=== PATIENT | female | born 1990 | race Caucasian/White ===

== ENCOUNTER 2017-01-11 21:32 | Emergency (ER) | payer OTHER ==
[2017-01-11 21:29] LABS: URINE SOURCE CLEAN CATCH
[2017-01-11 21:31] LABS: URINE APPEARANCE CLEAR; URINE BILIRUBIN NEG (NEG); URINE BLOOD NEG (NEG); URINE COLOR YELLOW; URINE GLUCOSE NEG (NORM); URINE KETONE NEG (NEG); URINE LEUKOCYTE ESTERASE NEG (NEG); URINE NITRATE NEG (NEG); URINE PROTEIN NEG (NEG); URINE SPECIFIC GRAVITY 1.025 (1.003-1.035)
[2017-01-11 21:32] LABS: MICRO INDICATED? NO
[~2017-01-11 21:32] MED LIST: ALBUTEROL17 GM INH; BENZONATATE PO; BIRTH CONTROL PILL PO; COLD MULTI SYM; DELTASONE20 MG PO; DICYCLOMINE HCL20 MG PO; HYDROMET SYRUP480 ML PO; MINIPRESS1 MG PO; NAPROXEN375 MG PO; RECLIPSEN PO; SINGULAIR PO; VIBERZI100 MG PO; VOLTAREN75 MG PO; WELLBUTRIN SR150 MG PO; ZANTAC150 M1 PO; ZITHROMAX PO; ZOFRAN ODT4 MG PO; ZOLOFT50 MG PO; ZYRTEC10 M2 PO; [UNRECOGNIZED DRUG - OTHER]
[2017-01-11 21:46] LABS: BASOPHIL# 0.1 X10e3 (0-0.3); BASOPHIL% 0.8 % (0-2.5); DIFF IND NO; EOSINOPHIL# 0.7 X10e3 (0-0.7); EOSINOPHIL% 7.2 % (0.0-7.0); HEMATOCRIT 43.4 % (35.0-45.0); HEMOGLOBIN 15.3 gm/dL (12.0-16.0); LYMPHOCYTE# 2.4 X10e3 (1.0-3.5); LYMPHOCYTE% 24.1 % (17.0-45.0); MEAN CELL VOLUME 91.4 FL (83-96); MEAN CORPUSCULAR HEMOGLOBIN 32.2 PG (28-34); MEAN CORPUSCULAR HGB CONC 35.3 g/dL (30-36); MEAN PLATELET VOLUME 8.8 FL (6.5-11.5); MONOCYTE# 0.5 X10e3 (0-1.0); MONOCYTE% 4.8 % (3.0-12.0); NEUTROPHIL# 6.2 X10e3 (1.5-7.1); NEUTROPHIL% 63.1 % (40-75); PLATELET COUNT 175 X10e3 (140-420); RED BLOOD COUNT 4.75 X10e (3.90-5.30); WHITE BLOOD COUNT 9.8 X10e3 (4.0-10.5)
[2017-01-11 22:00] LABS: ALBUMIN SERUM 4.2 g/dL (3.5-5.0); ALKALINE PHOSPHATASE 79 U/L (32-92); ALT (SGPT) 52 U/L (10-40); AST (SGOT) 37 U/L (10-42); BILIRUBIN,TOTAL 0.3 mg/dL (0.2-2.0); BLOOD UREA NITROGEN 11 mg/dL (9-23); CALCIUM SERUM 8.8 mg/dL (8.4-10.2); CARBON DIOXIDE 25 mmol/L (22-31); CHLORIDE 108 mmol/L (100-111); GLOM FILT RATE Estimated 78.3 mL/min (>60); GLUCOSE FASTING 83 mg/dL (70-110); LIPASE 24 U/L (22-51); POTASSIUM 3.6 mmol/L (3.5-5.1); PROTEIN TOTAL SERUM 7.5 g/dL (6.0-8.3); SODIUM 136 mmol/L (135-145)
[2017-01-11 22:07] LABS: BILIRUBIN, DIRECT <0.1 mg/dL (0.0-0.2); BILIRUBIN,INDIRECT 0.2 mg/dL (0.0-0.9)
== END 2017-01-11 23:44 | disposition home or self-care (01) ==
LOC: SED 21:32
PROVIDERS: Emergency Medicine
DX: K29.70 Gastritis, unspecified, without bleeding (principal); Z90.49 Acquired absence of other specified parts of digestive tract; F17.200 Nicotine dependence, unspecified, uncomplicated; Z79.899 Other long term (current) drug therapy; Z88.8 Allergy status to other drugs, medicaments and biological substances
CPT/HCPCS: 36415; 80048; 80076; 81003; 83690; 84703; 85025; 96361; 96372; 96374; 96375; 99284; J0500; J2405

== ENCOUNTER → 2017-01-15 | Day surgery (SDC) | payer OTHER ==
[~2017-01-15] MED LIST changes: +DULOXETINE HCL60 MG PO; +VISTARIL PO
--- NOTE | ~2017-01-15 | OR ---
Unit #: [id number] #: [id number] Patient: BECKY MADRIGAL [id number] [address] [address] [id number] O MR#: [id number] NAME: BECKY MADRIGAL ROOM: Date of Procedure: 01/15/2017 Admission Date: 01/15/2017 Surgeon: Av Cruz M.D. : 1990 Attending Physician: Av Cruz M.D. Primary Care Physician: Sergey Ryder M.D. OPERATIVE REPORT PROCEDURES PERFORMED Esophagogastroduodenoscopy with biopsy and colonoscopy with biopsy. INDICATIONS FOR PROCEDURE The patient with chronic abdominal pain, chronic diarrhea, nausea, vomiting, undergoing evaluation with upper endoscopy and colonoscopy. MEDICATIONS Monitored anesthesia. POSTOPERATIVE FINDINGS 1. Normal esophagus. 2. Food residue in the stomach suggestive of possible gastroparesis along with gastritis. Biopsies were taken. 3. Normal duodenum and distal duodenum. Biopsies taken looking for celiac disease. 4. Colon was completely normal all the way to cecum and terminal ileum. Random biopsies were taken given her bowel history. PLAN Follow up on the pathology report. Symptomatic treatment for now. DESCRIPTION OF PROCEDURE The patient was explained of the procedure, risks, and benefits along with risks and benefits of anesthesia. She was brought to the endoscopy room. Propofol anesthesia was given. Bite block was placed. The scope was passed down the mouth into the esophagus, stomach, duodenum, and distal duodenum. Findings as described. Biopsies taken. Gently, I pulled the scope out of the patient's mouth. At this time, she was turned around and repositioned for colonoscopy. Rectal exam was done, which was normal. Colonoscope was lubricated, passed up the rectum, advanced under direct vision all the way to the cecum. Cecum was identified by ileocecal valve and appendiceal orifice. Terminal ileum was intubated showed normal mucosa. Colonic mucosa was normal throughout. Random biopsies were taken. I retroflexed in the rectum, small hemorrhoids seen. Scope was gently pulled out. She tolerated it well. No major complications were seen. Dictated by... Unit #: [id number] #: [id number] Patient: QUIGGINS,Concetta Mars/brie TD: 01/16/2017 22:40 JOB #: [id number] OPERATIVE REPORT Page 1 of 1 X Av Cruz MD PROCEDURE OPERATIVE NOTE
[2017-01-15 12:02] LABS: BASOPHIL# 0.1 X10e3 (0-0.3); EOSINOPHIL# 0.9 X10e3 (0-0.7); EOSINOPHIL% 7.8 % (0.0-7.0); HEMOGLOBIN 15.7 gm/dL (12.0-16.0); LYMPHOCYTE# 2.5 X10e3 (1.0-3.5); LYMPHOCYTE% 22.3 % (17.0-45.0); MEAN CELL VOLUME 92.9 FL (83-96); MEAN CORPUSCULAR HEMOGLOBIN 31.7 PG (28-34); MEAN CORPUSCULAR HGB CONC 34.1 g/dL (30-36); MEAN PLATELET VOLUME 8.8 FL (6.5-11.5); MONOCYTE# 0.5 X10e3 (0-1.0); MONOCYTE% 4.5 % (3.0-12.0); NEUTROPHIL# 7.3 X10e3 (1.5-7.1); NEUTROPHIL% 64.4 % (40-75); PLATELET COUNT 177 X10e3 (140-420); RED BLOOD COUNT 4.95 X10e (3.90-5.30); RED CELL DISTRIBUTION WIDTH 13.1 % (11.0-15.5); WHITE BLOOD COUNT 11.4 X10e3 (4.0-10.5)
[2017-01-15 12:03] LABS: DIFF IND NO
[2017-01-15 12:34] LABS: ALBUMIN SERUM 4.4 g/dL (3.5-5.0); BILIRUBIN,TOTAL 0.5 mg/dL (0.2-2.0); CALCIUM SERUM 9.1 mg/dL (8.4-10.2); CREATININE SERUM 0.9 mg/dL (0.6-1.4); GLOM FILT RATE Estimated 88.9 mL/min (>60); POTASSIUM 4.3 mmol/L (3.5-5.1); PROTEIN TOTAL SERUM 7.6 g/dL (6.0-8.3)
[2017-01-18 16:04] LABS: GLIADIN IGA AB 6 Units (<20); GLIADIN IGG AB 5 Units (<20); RETICULIN IGA SCREEN W/REFLEX Negative (Negative); TISSUE TRANSGLUTAMINASE IGA AB 1 U/mL (<4)
== END | disposition home or self-care (01) ==
LOC: COPS 08:00
PROVIDERS: Internal Medicine
DX: K52.9 Noninfective gastroenteritis and colitis, unspecified (principal); K63.89 Other specified diseases of intestine; K29.50 Unspecified chronic gastritis without bleeding; K20.9 Esophagitis, unspecified; J45.909 Unspecified asthma, uncomplicated; F17.210 Nicotine dependence, cigarettes, uncomplicated; Z87.440 Personal history of urinary (tract) infections; Z88.8 Allergy status to other drugs, medicaments and biological substances; Z79.899 Other long term (current) drug therapy; Z90.49 Acquired absence of other specified parts of digestive tract; Z90.721 Acquired absence of ovaries, unilateral; Z98.890 Other specified postprocedural states
CPT/HCPCS: 80053; 83516; 84703; 85025; 86255; 88305; 88312; J2250

== ENCOUNTER → 2017-02-06 | Outpatient (CLI) | payer OTHER ==
--- NOTE | ~2017-02-06 | NM19 ---
[facility] A Service of [facility] RADIOLOGY TEXT RESULTS PATIENT: BECKY MADRIGAL LOCATION: [facility] : [birth year] UNIT #: [id number] AGE: [address]: SHANNON KWAN APRN SEX: F ORDER DR: [id number] [facility] [address] [place], [place] [address] [id number] O MR#: [id number] Acc #: [id number] NAME: BECKY MADRIGAL : 1990 SEX: F STUDY DATE/TIME: 02/06/2017 10:36 UNIT: [facility] ROOM: STUDY DESCRIPTION: ID Gastric Emptying Study Attending Physician: Shannon Kwan A.P.R.N. Referring Physician: Shannon Kwan A.P.R.N. Ordering Physician: Shannon Kwan A.P.R.N. Primary Care Physician: Sergey Ryder M.D. MEDICAL IMAGING REPORT This report is preliminary unless electronic signature is present EXAM Gastric emptying scan 02/06/2017 HISTORY Nausea and vomiting and left upper quadrant abdominal pain since 2009. Early satiety. Diarrhea. Belching, abdominal gassiness. Symptoms more frequent since 2011. FINDINGS The patient ingested 552 microcuries of technetium 99m tagged sulfur colloid in eggs. Images of the upper abdomen were obtained for 4 hours. After 1 hour the stomach was 6% empty and after 2 hours the stomach was 33% empty and after 4 hours the stomach was 88% empty. Normal range is greater than 60% empty after 2 hours of imaging and greater than 90% empty after 4 hours of imaging. IMPRESSION Delayed gastric emptying after 2 and 4 hours of imaging. Dictated by... Julio C Blake M.D. THIS IS AN ELECTRONICALLY VERIFIED REPORT Julio C Blake M.D. at 02/07/2017 8:08 AM Hussain TD: 02/06/2017 16:33 JOB #: [id number] MEDICAL IMAGING REPORT Page 1 of 1 COPY
[2017-02-06 10:05] LABS: HEMATOCRIT 45.6 % (35.0-45.0); HEMOGLOBIN 15.7 gm/dL (12.0-16.0); MEAN CELL VOLUME 92.8 FL (83-96); MEAN CORPUSCULAR HGB CONC 34.5 g/dL (30-36); MEAN PLATELET VOLUME 8.5 FL (6.5-11.5); RED BLOOD COUNT 4.92 X10e (3.90-5.30); RED CELL DISTRIBUTION WIDTH 13.4 % (11.0-15.5); WHITE BLOOD COUNT 11.4 X10e3 (4.0-10.5)
[2017-02-06 10:35] LABS: ALBUMIN SERUM 4.4 g/dL (3.5-5.0); BILIRUBIN,TOTAL 0.5 mg/dL (0.2-2.0); BUN/CREATININE RATIO 12.5; CALCIUM SERUM 9.2 mg/dL (8.4-10.2); CREATININE SERUM 0.8 mg/dL (0.6-1.4); GLOM FILT RATE Estimated 102.6 mL/min (>60); POTASSIUM 4.3 mmol/L (3.5-5.1); PROTEIN TOTAL SERUM 7.5 g/dL (6.0-8.3)
== END | disposition home or self-care (01) ==
LOC: CNUC 09:31
PROVIDERS: Nurse Practitioner Family
DX: R11.2 Nausea with vomiting, unspecified (principal); K30 Functional dyspepsia
CPT/HCPCS: 36415; 78264; 80053; 83036; 85027; A9541

== ENCOUNTER 2017-05-16 18:39 | Emergency (ER) | payer OTHER ==
[~2017-05-16] VITALS: Ht 157.5 cm; Wt 90.7 kg
[~2017-05-16 18:39] MED LIST changes: -DULOXETINE HCL60 MG PO; -VISTARIL PO
[2017-05-16] MEDS ORDERED: DULOXETINE HCL60 MG PO (18:56)
[2017-05-16] MEDS ORDERED: VISTARIL PO (18:57)
== END 2017-05-16 20:00 | disposition home or self-care (01) ==
LOC: SED 18:39
DX: J06.9 Acute upper respiratory infection, unspecified (principal); E28.2 Polycystic ovarian syndrome; Z90.49 Acquired absence of other specified parts of digestive tract; F17.200 Nicotine dependence, unspecified, uncomplicated; Z88.8 Allergy status to other drugs, medicaments and biological substances; Z79.899 Other long term (current) drug therapy
CPT/HCPCS: 87651; 99283